=== PATIENT | female | born 1985 | race Caucasian/White ===

== ENCOUNTER 2021-06-07 14:23 | Inpatient (IN) | payer OTHER ==
[~2021-06-07] VITALS: Ht 162.6 cm; Wt 90.9 kg
[2021-06-07] MEDS ORDERED: ELAVIL 50 MG TA50 MG PO (16:24)
[2021-06-07] MEDS ORDERED: BUPRENORPHIN-N1 EACH SL (16:24)
[2021-06-07] MEDS ORDERED: ONDANSETRON HCL4 MG PO (16:25)
[2021-06-07] MEDS ORDERED: OLANZAPINE10 MG PO (16:25)
[2021-06-07] MEDS ORDERED: AMITRIPTYLINE H25 MG PO (16:26)
[2021-06-07] MEDS ORDERED: ZIPRASIDONE HCL40 MG PO (16:26)
[2021-06-07] MEDS ORDERED: CRESTOR 10 MG T10 MG PO (16:29)
[2021-06-07] MEDS ORDERED: ZIPRASIDONE HCL20 MG PO (16:31)
--- NOTE | 2021-06-07 17:45 | NUR ---
DR MOLINA HERE TO PLACE TEMPORARY DIALYSIS CATH, PT WAS CLEANED AND DRAPED FOR PROCEDURE, ZOFRAN GIVEN FOR C/O NAUSEA, PT TOLERATED PROCEDURE WELL, WILL CONT TO MONITOR
[2021-06-07 19:12] LABS: HEMOGLOBIN 13.6 gm/dl (12.3-15.3); RED BLOOD COUNT 4.7 M/UL (4.00-5.10); WHITE BLOOD COUNT 13.2 K/UL (4.5-11.0)
[2021-06-08 09:22] LABS: HEMOGLOBIN 12.2 gm/dl (12.3-15.3); RED BLOOD COUNT 4.24 M/UL (4.00-5.10); WHITE BLOOD COUNT 13.4 K/UL (4.5-11.0)
--- NOTE | 2021-06-08 13:24 | NUR ---
PATIENT REFUSED BED BATH AT THIS TIME.
[2021-06-09 02:52] LABS: RED BLOOD COUNT 4.2 M/UL (4.00-5.10); WHITE BLOOD COUNT 13.8 K/UL (4.5-11.0)
[2021-06-09 08:14] LABS: HBSAG SCREEN Negative (Negative); HEP A AB, IGM Negative (Negative); HEP B CORE AB, IGM Negative (Negative); HEP C VIRUS AB <0.1 (0.0-0.9)
[2021-06-10 02:19] LABS: HEMOGLOBIN 12.5 gm/dl (12.3-15.3); RED BLOOD COUNT 4.33 M/UL (4.00-5.10); WHITE BLOOD COUNT 16.6 K/UL (4.5-11.0)
[2021-06-10 10:08] LABS: ANTISTREPTOLYSIN O AB <20.0 IU/mL (0.0-200.0); COMPLEMENT C3, SERUM 165 mg/dL (82-167); COMPLEMENT C4, SERUM 31 mg/dL (12-38)
[2021-06-10 10:08] LABS: CREATININE, URINE 90.7 mg/dL (Not Estab.)
[2021-06-11 02:27] LABS: HEMOGLOBIN 11.7 gm/dl (12.3-15.3); RED BLOOD COUNT 4.05 M/UL (4.00-5.10); WHITE BLOOD COUNT 16.6 K/UL (4.5-11.0)
[2021-06-11 12:09] LABS: A/G RATIO 0.7 (0.7-1.7); ALBUMIN 2.5 g/dL (2.9-4.4); ALPHA-1-GLOBULIN 0.5 g/dL (0.0-0.4); ALPHA-2-GLOBULIN 0.4 g/dL (0.4-1.0); BETA GLOBULIN 1.9 g/dL (0.7-1.3); GAMMA GLOBULIN 0.8 g/dL (0.4-1.8); GLOBULIN, TOTAL 3.6 g/dL (2.2-3.9); IMMUNOGLOBULIN A, QN, SERUM 140 mg/dL (87-352); IMMUNOGLOBULIN G, QN, SERUM 806 mg/dL (586-1602); IMMUNOGLOBULIN M, QN, SERUM 48 mg/dL (26-217); M-SPIKE Not Observed g/dL (Not Observed); PROTEIN, TOTAL, SERUM 6.1 g/dL (6.0-8.5)
[2021-06-11 14:10] LABS: ANTI-DSDNA ANTIBODIES 1 IU/mL (0-9)
[2021-06-12 06:11] LABS: HEMOGLOBIN 11.1 gm/dl (12.3-15.3); RED BLOOD COUNT 3.79 M/UL (4.00-5.10); WHITE BLOOD COUNT 17.9 K/UL (4.5-11.0)
[2021-06-12 11:15] LABS: ANTIGLOMERULAR BM AB 3 units (0-20)
[2021-06-12 15:16] LABS: ANTIMYELOPEROXIDASE (MPO) ABS <9.0 U/mL (0.0-9.0); ANTIPROTEINASE 3 (PR-3) ABS <3.5 U/mL (0.0-3.5); ATYPICAL PANCA <1:20 titer (Neg:<1:20); CYTOPLASMIC (C-ANCA) <1:20 titer (Neg:<1:20); PERINUCLEAR (P-ANCA) <1:20 titer (Neg:<1:20)
[2021-06-13 09:16] LABS: HEMOGLOBIN 10.9 gm/dl (12.3-15.3); RED BLOOD COUNT 3.73 M/UL (4.00-5.10); WHITE BLOOD COUNT 17.3 K/UL (4.5-11.0)
[2021-06-14 03:43] LABS: HEMOGLOBIN 10.7 gm/dl (12.3-15.3); RED BLOOD COUNT 3.76 M/UL (4.00-5.10); WHITE BLOOD COUNT 14.9 K/UL (4.5-11.0)
[2021-06-15 06:55] LABS: HEMOGLOBIN 10.8 gm/dl (12.3-15.3); RED BLOOD COUNT 3.76 M/UL (4.00-5.10); WHITE BLOOD COUNT 14.4 K/UL (4.5-11.0)
[2021-06-17 06:43] LABS: HEMOGLOBIN 11.6 gm/dl (12.3-15.3); RED BLOOD COUNT 4.12 M/UL (4.00-5.10)
[2021-06-17 06:47] LABS: WHITE BLOOD COUNT 8.4 K/UL (4.5-11.0)
[2021-06-18 07:29] LABS: HEMOGLOBIN 10.6 gm/dl (12.3-15.3); RED BLOOD COUNT 3.86 M/UL (4.00-5.10); WHITE BLOOD COUNT 6.5 K/UL (4.5-11.0)
[2021-06-20 06:17] LABS: HEMOGLOBIN 10.3 gm/dl (12.3-15.3); RED BLOOD COUNT 3.62 M/UL (4.00-5.10); WHITE BLOOD COUNT 5.1 K/UL (4.5-11.0)
[2021-06-20 09:16] LABS: VITAMIN D, 25-HYDROXY 18.9 ng/mL (30.0-100.0)
[2021-06-22 06:49] LABS: RED BLOOD COUNT 3.82 M/UL (4.00-5.10); WHITE BLOOD COUNT 4.8 K/UL (4.5-11.0)
--- NOTE | 2021-06-22 19:33 | NUR ---
06/22 told in shift report that patient has no iv access and the md was aware. iv in right chest inflitrated on dayshift and was removed.
[2021-06-23] MEDS ORDERED: PROTONIX 40 MG40 M1 PO (17:34)
== END 2021-06-23 19:49 | disposition home or self-care (01) | DRG 682 ==
LOC: MED SURG 4 16:01 → PROG CARE 16:01 → MED SURG 4 06-13 22:00
PROVIDERS: Internal Medicine; Internal Medicine Nephrology; Physician Assistant; Physician Assistant Medical; ADMIT Internal Medicine
PROC: 5A1D70Z Performance of Urinary Filtration, Intermittent, Less than 6 Hours Per Day (ICD-10-PCS; principal; 2021-06-07)
PROC: 0TB33ZX Excision of Right Kidney Pelvis, Percutaneous Approach, Diagnostic (ICD-10-PCS; 2021-06-07)
PROC: 3E03329 Introduction of Other Anti-infective into Peripheral Vein, Percutaneous Approach (ICD-10-PCS; 2021-06-07)
PROC: 02HV33Z Insertion of Infusion Device into Superior Vena Cava, Percutaneous Approach (ICD-10-PCS; 2021-06-07)
PROC: B548ZZA Ultrasonography of Superior Vena Cava, Guidance (ICD-10-PCS; 2021-06-07)
PROC: 5A1D70Z Performance of Urinary Filtration, Intermittent, Less than 6 Hours Per Day (ICD-10-PCS; 2021-06-08)
PROC: B24BZZZ Ultrasonography of Heart with Aorta (ICD-10-PCS; 2021-06-08)
PROC: 5A1D70Z Performance of Urinary Filtration, Intermittent, Less than 6 Hours Per Day (ICD-10-PCS; 2021-06-09)
DX: N17.0 Acute kidney failure with tubular necrosis (principal); G93.41 Metabolic encephalopathy; F11.20 Opioid dependence, uncomplicated; E87.1 Hypo-osmolality and hyponatremia; E87.2 Acidosis; Z20.822 Contact with and (suspected) exposure to COVID-19; F31.9 Bipolar disorder, unspecified; T81.82XA Emphysema (subcutaneous) resulting from a procedure, initial encounter; Y83.8 Other surgical procedures as the cause of abnormal reaction of the patient, or of later complication, without mention of misadventure at the time of the procedure; E87.6 Hypokalemia; I10 Essential (primary) hypertension; F22 Delusional disorders; F15.10 Other stimulant abuse, uncomplicated; K31.84 Gastroparesis; E87.5 Hyperkalemia; R31.9 Hematuria, unspecified; D64.9 Anemia, unspecified; F19.10 Other psychoactive substance abuse, uncomplicated; G89.4 Chronic pain syndrome; M54.9 Dorsalgia, unspecified; K59.00 Constipation, unspecified; Z90.49 Acquired absence of other specified parts of digestive tract
CPT/HCPCS: ECHO; 36415; 71045; 71250; 74018; 77012; 80048; 80053; 80074; 81001; 82043; 82330; 82550; 82553; 82570; 82652; 82784; 82803; 83520; 83735; 83970; 84100; 84133; 84155; 84156; 84165; 84295; 84300; 85007; 85025; 85027; 85610; 86038; 86060; 86160; 86225; 86256; 86334; 87040; 87086; 88305; 88313; 88346; 88348; 89050; 90935; 90937; 93306; 97116; 97116-GP-CQ; 97161; 97166; C1752; C9113; J0696; J1650; J2405; J3475; J7030; J7060; P9047